=== PATIENT | female | born 1965 | race Caucasian/White ===

== ENCOUNTER 2017-09-01 14:39 | Emergency (ER) | payer MEDICAID, OTHER ==
--- NOTE | 2017-09-01 18:47 | ED Physician Chart ---
ED Chief Complaint/HPI - Patient Information Date Seen:: 09/01/17 Time Seen:: 14:50 Chief Complaint:: Right Toe Redness History of Present Illness:: onset x 3 days of right foot/toes redness and swelling; pt denies trauma, pain, injuries, itching, paresthesias, weakness, or gait changes; pt denies H/As, neck pain, C/P, SOB, Abd. Pain, A/N/V/D/C, fever, chills, or urinary s/s; pt's last tetanus shot: < 5 years; UTD; LNMP: 08/27/17; pt denies Allergies:: Allergies Allergy/AdvReac Type Severity Reaction Status Date / Time No Known Allergies Allergy Verified 09/01/17 14:48 Vitals:: Vital Signs - 8 hr 09/01/17 14:48 Temp 98.5 F HR 86 RR 15 BP 111/75 O2 Sat % 98 Historian:: Patient Review:: Nurse's Note Reviewed ED Review of Systems - Review of Systems General/Constitutional: No fever, No chills, No weight loss, No weakness, No diaphoresis, No edema, No loss of appetite Skin: No skin lesions, No rash, No bruising Head: No headache, No light-headedness Eyes: No loss of vision, No pain, No diplopia ENT: No earache, No nasal drainage, No sore throat, No tinnitus Neck: No neck pain, No swelling, No thyromegaly, No stiffness, No mass noted Cardio Vascular: No chest pain, No palpitations, No PND, No orthopnea, No edema Pulmonary: No SOB, No cough, No sputum, No wheezing GI: No nausea, No vomiting, No diarrhea, No pain, No melena, No hematochezia, No constipation, No hematemesis G/U: No dysuria, No frequency, No hematuria, No nacturia Lease Administration Analyst: No vaginal discharge, No abnormal vaginal bleed, No contraction Musculoskeletal: No bone or joint pain, No back pain, No muscle pain Endocrine: No polyuria, No polydipsia Psychiatric: No prior psych history, No depression, No anxiety, No suicidal ideation, No homicidal ideation, No auditory hallucination, No visual hallucination Hematopoietic: No bruising, No lymphadenopathy Allergic/Immuno: No urticaria, No angioedema Neurological: No syncope, No focal symptoms, No weakness, No paresthesia, No headache, No seizure, No dizziness, No confusion, No vertigo ED Past Medical History - Past Medical History Obtainable: Yes Past Medical History: No significant medical hx Family History: None Social History: Non Smoker, No Alcohol, No Drug Use, Single Surgical History: None Psychiatricy History: None Medication: Reviewed Family Medical History - Family Member Mother Hx Family Cancer: No Hx Family Coronary Artery Disease: No Hx Family Seizures: No Hx Family Dementia: No Hx Family AIDS: No Hx Family HIV: No Hx Family COPD: No Hx Family Tuberculosis: No ED Physical Exam - Physical Examination General/Constitutional: Awake, Well-developed, well-nourished, Alert, No distress, GCS 15, Non-toxic appearing, Ambulatory Head: Atraumatic Eyes: Lids, conjuctiva normal, PERRL, EOMI Skin: Nl inspection, No rash, No skin lesions, No ecchymosis, Well hydrated, No lymphadenopathy Other Skin comments:: Right Foot/ Right 2nd and 3rd Toes localized cellulitis; no PWs; no FBs; Gait: WNL; no ligament instability; good motor, tendon, and sensory functions; good NV functions; full ROMs of all joints; no joint tenderness; no septic joints ENMT: External ears, nose nl, TM canals nl, Nasal exam nl, Lips, teeth, gums nl , Oropharynx nl, Tonsils nl Neck: Nontender, Full ROM w/o pain, No JVD, No nuchal rigidity, No bruit, No mass, No stridor Other Neck comments:: supple; no meningeal signs; no cervical tenderness; no bruits Respiratory: Nl effort/Exclusion, Clear to Auscultation, No Wheeze/Rhonchi/Rales Cardio Vascular: RRR, No murmur, gallop, rubs, NL S1 S2, Carotid/Femoral/Distal pulses equal bilaterally GI: No tenderness/rebounding/guarding, No organomegaly, No hernia, Normal BS's, Nondistended, No mass/bruits, No McBurney tenderness Other GI comments:: no pulsatile masses : No CVA tenderness Extremities: No tenderness or effusion, Full ROM, normal strength in all extremities, No edema, Normal digits & nails Neuro/Psych: Alert/oriented, DTR's symmetric, Normal sensory exam, Normal motor strength, Judgement/insight normal, Mood normal, Normal gait, No focal deficits Misc: Normal back, No paraspinal tenderness ED Septic Shock - . Is Septic Shock (SBP<90, OR Lactate>4 mmol\L) present?: No - <6hrs of presentation: Vital Signs: Vital Signs - 8 hr 09/01/17 14:48 Temp 98.5 F HR 86 RR 15 BP 111/75 O2 Sat % 98 ED Reassessment (Disposition) - Reassessment Reassessment:: pt is asymptomatic upon discharge Reassessment Condition:: Improved - Diagnosis Diagnosis:: Dx: Localized Cellulitis; Right Foot/Toes Cellulitis - Aftercare/Follow up Instructions Aftercare/Follow-Up Instructions:: Counseled pt regarding lab results/diagnosis & need follow up, Refer to Discharge Instructions, Counseled pt & family regarding lab results/diagnosis & need follow up Medication Prescribed:: Rx: Keflex 500mg po qid x 10 days; Neosporin Ointment bid x 14 days; Warm Compresses to affected areas; Skin Care/Foot Care Instructions - Patient Disposition Discharge/Transfer:: Home Condition at Disposition:: Stable, Improved (RTER prn if existing s/s reoccur and/or get worse and/or any other new s/s occur; ACIs given for all above Dx; Refer to Machine Stuffer/Rotary Drill Operator Helper/Vascular Surgeon/Orthopedist/Livestock Handler [facility]; F /U with PMD in one day or prn; RTER prn if concerned) ED Discharge Plan - Patient Disposition Instructions: Cellulitis, [id number]
== END 2017-09-01 15:15 ==
LOC: ER 14:39
DX: L03.031 Cellulitis of right toe (principal)
CPT/HCPCS: Z7502

== ENCOUNTER 2017-09-15 22:26 | Emergency (ER) | payer OTHER ==
--- NOTE | 2017-09-15 22:39 | ED Physician Chart ---
ED Chief Complaint/HPI - Patient Information Date Seen:: 09/15/17 Time Seen:: 22:15 Chief Complaint:: Rash History of Present Illness:: onset x one week of intermittent right foot and right toe itching rash; pt denies trauma, H/As, neck pain, C/P, SOB, Abd. Pain, A/N/V/D/C, fever, chills, or urinary s/s; pt's last tetanus shot: < 5 years; UTD; LNMP: 09/13/17; pt denies Allergies:: Allergies Allergy/AdvReac Type Severity Reaction Status Date / Time No Known Allergies Allergy Verified 09/01/17 14:48 Historian:: Patient Review:: Nurse's Note Reviewed ED Review of Systems - Review of Systems General/Constitutional: No fever, No chills, No weight loss, No weakness, No diaphoresis, No edema, No loss of appetite Skin: Skin lesions, Rash, No bruising Head: No headache, No light-headedness Eyes: No loss of vision, No pain, No diplopia ENT: No earache, No nasal drainage, No sore throat, No tinnitus Neck: No neck pain, No swelling, No thyromegaly, No stiffness, No mass noted Cardio Vascular: No chest pain, No palpitations, No PND, No orthopnea, No edema Pulmonary: No SOB, No cough, No sputum, No wheezing GI: No nausea, No vomiting, No diarrhea, No pain, No melena, No hematochezia, No constipation, No hematemesis G/U: No dysuria, No frequency, No hematuria, No nacturia Marine Designer: No vaginal discharge, No abnormal vaginal bleed, No contraction Musculoskeletal: No bone or joint pain, No back pain, No muscle pain Endocrine: No polyuria, No polydipsia Psychiatric: No prior psych history, No depression, No anxiety, No suicidal ideation, No homicidal ideation, No auditory hallucination, No visual hallucination Hematopoietic: No bruising, No lymphadenopathy Allergic/Immuno: No urticaria, No angioedema Neurological: No syncope, No focal symptoms, No weakness, No paresthesia, No headache, No seizure, No dizziness, No confusion, No vertigo ED Past Medical History - Past Medical History Obtainable: Yes Past Medical History: No significant medical hx Family History: HTN Social History: Non Smoker, No Alcohol, No Drug Use, Single Surgical History: None Psychiatricy History: None Medication: Reviewed Family Medical History - Family Member Mother History Unknown: Yes Hx Family Cancer: No Hx Family Coronary Artery Disease: No Hx Family Seizures: No Hx Family Dementia: No Hx Family AIDS: No Hx Family HIV: No Hx Family COPD: No Hx Family Tuberculosis: No ED Physical Exam - Physical Examination General/Constitutional: Awake, Well-developed, well-nourished, Alert, No distress, GCS 15, Non-toxic appearing, Ambulatory Head: Atraumatic Eyes: Lids, conjuctiva normal, PERRL, EOMI Skin: Nl inspection, No skin lesions, No ecchymosis, Well hydrated, No lymphadenopathy Other Skin comments:: Locailzed Right Toes 2 and 3 web space macular-papular lesions cw athletes' foot ; no FBs; no cellulitis; Gait: WNL; good motor, tendon, and sensory functions; good NV functions ENMT: External ears, nose nl, Nasal exam nl, Lips, teeth, gums nl Neck: Nontender, Full ROM w/o pain, No JVD, No nuchal rigidity, No bruit, No mass, No stridor Other Neck comments:: supple; no meningeal signs; no cervical tenderness; no bruits Respiratory: Nl effort/Exclusion, Clear to Auscultation, No Wheeze/Rhonchi/Rales Cardio Vascular: RRR, No murmur, gallop, rubs, NL S1 S2, Carotid/Femoral/Distal pulses equal bilaterally GI: No tenderness/rebounding/guarding, No organomegaly, No hernia, Normal BS's, Nondistended, No mass/bruits, No McBurney tenderness Other GI comments:: no pulsatile masses : No CVA tenderness Extremities: No tenderness or effusion, Full ROM, normal strength in all extremities, No edema, Normal digits & nails Neuro/Psych: Alert/oriented, DTR's symmetric, Normal sensory exam, Normal motor strength, Judgement/insight normal, Mood normal, Normal gait, No focal deficits Misc: Normal back, No paraspinal tenderness ED Septic Shock - . Is Septic Shock (SBP<90, OR Lactate>4 mmol\L) present?: No ED Reassessment (Disposition) - Reassessment Reassessment:: pt is asymptomatic upon discharge Reassessment Condition:: Improved - Diagnosis Diagnosis:: Contact Dermatitis; Rash; Itching Rash; Athlete's Foot; Toe Mycosis; Right Foot/ Toe Itching Rash - Aftercare/Follow up Instructions Aftercare/Follow-Up Instructions:: Counseled pt regarding lab results/diagnosis & need follow up, Refer to Discharge Instructions, Counseled pt & family regarding lab results/diagnosis & need follow up Medication Prescribed:: Rx: Lotrisone Cream: apply to affected areas bid x 7 days prn itching, redness, and/or rash; Skin/Rash Care Instructions - Patient Disposition Discharge/Transfer:: Home Condition at Disposition:: Stable, Improved (RTER prn if existing s/s reoccur and/or get worse and/or any other new s/s occur; ACIs given for all above Dx; Refer to Engineering Manager Electronics/Ship'S Cook/Dispatch Officer [facility]; F/U with PMD in one day or prn ; RTER prn if concerned) ED Discharge Plan - Patient Disposition Instructions: Contact Dermatitis, [id number] Additional Instructions: FOLLOW UP WITH YOUR ELECTRICIAN TELEPHONE [facility]ICA TAKE PRESCRIBED MEDICATIONS ORDERED
== END 2017-09-15 22:32 | disposition home or self-care (01) ==
LOC: ER 22:26
DX: L25.9 Unspecified contact dermatitis, unspecified cause (principal); B35.3 Tinea pedis
CPT/HCPCS: Z7502

== ENCOUNTER 2017-10-13 08:25 | Emergency (ER) | payer OTHER ==
--- NOTE | 2017-10-13 09:04 | ED Physician Chart ---
ED Chief Complaint/HPI - Patient Information Date Seen:: 10/13/17 Time Seen:: 08:50 Chief Complaint:: cough History of Present Illness:: Patient's had a cough productive of yellow sputum for last 1 week. She has had no fever. Patient also complains of pain right foot in the web space between the small and fourth toes for the last one month. Allergies:: Allergies Allergy/AdvReac Type Severity Reaction Status Date / Time No Known Allergies Allergy Verified 09/01/17 14:48 Vitals:: Vital Signs - 8 hr 10/13/17 08:39 Temp 97.3 F HR 89 RR 16 BP 111/74 O2 Sat % 98 Historian:: Patient Review:: Nurse's Note Reviewed ED Review of Systems - Review of Systems General/Constitutional: No fever, No chills Skin: No skin lesions Head: No headache Eyes: No loss of vision ENT: No earache Neck: No neck pain Cardio Vascular: No chest pain, No palpitations Pulmonary: No SOB GI: No nausea, No vomiting, No diarrhea G/U: No dysuria Musculoskeletal: No bone or joint pain, No back pain, No muscle pain, Other ( see history) Endocrine: No polyuria, No polydipsia Psychiatric: No prior psych history, No suicidal ideation Allergic/Immuno: No urticaria Neurological: No syncope, No focal symptoms, No weakness Family Medical History - Family Member Mother History Unknown: Yes Hx Family Cancer: No Hx Family Coronary Artery Disease: No Hx Family Seizures: No Hx Family Dementia: No Hx Family AIDS: No Hx Family HIV: No Hx Family COPD: No Hx Family Tuberculosis: No ED Physical Exam - Physical Examination General/Constitutional: Awake, Well-developed, well-nourished, Alert, No distress, GCS 15, Non-toxic appearing, Ambulatory Head: Atraumatic Eyes: Lids, conjuctiva normal, PERRL, EOMI Skin: Nl inspection, No rash, No skin lesions, No ecchymosis, Well hydrated, No lymphadenopathy ENMT: External ears, nose nl, Nasal exam nl, Lips, teeth, gums nl Neck: Nontender, Full ROM w/o pain, No JVD, No nuchal rigidity, No bruit, No mass, No stridor Respiratory: Nl effort/Exclusion, Clear to Auscultation, No Wheeze/Rhonchi/Rales Cardio Vascular: RRR, No murmur, gallop, rubs, NL S1 S2 GI: No tenderness/rebounding/guarding, No organomegaly, No hernia, Normal BS's, Nondistended, No mass/bruits, No McBurney tenderness : No CVA tenderness Extremities: No tenderness or effusion, Full ROM, normal strength in all extremities, No edema, Normal digits & nails (whiteness of skin in the webspace between the right fourth and fifth toes) Neuro/Psych: Alert/oriented, DTR's symmetric, Normal sensory exam, Normal motor strength, Judgement/insight normal, Mood normal, Normal gait, No focal deficits Misc: Normal back, No paraspinal tenderness ED Assessment - Assessment General Assessment: Patient declined testing for influenza A and B ED Septic Shock - . Is Septic Shock (SBP<90, OR Lactate>4 mmol\L) present?: No - <6hrs of presentation: Vital Signs: Vital Signs - 8 hr 10/13/17 08:39 Temp 97.3 F HR 89 RR 16 BP 111/74 O2 Sat % 98 ED Reassessment (Disposition) - Diagnosis Diagnosis:: Acute viral syndrome; tinea - Aftercare/Follow up Instructions Medication Prescribed:: Prescription for Lotrisone 4 ounce tube to apply twice a day to apply between right fourth and fifth toes. - Patient Disposition Discharge/Transfer:: Home Condition at Disposition:: Stable, Unchanged
== END 2017-10-13 09:10 | disposition home or self-care (01) ==
LOC: ER 08:25
DX: B34.9 Viral infection, unspecified (principal); B35.9 Dermatophytosis, unspecified
CPT/HCPCS: Z7502

== ENCOUNTER 2018-03-05 16:26 | Emergency (ER) | payer MEDICAID, OTHER ==
--- NOTE | 2018-03-05 17:02 | ED Physician Chart ---
ED Chief Complaint/HPI - Patient Information Date Seen:: 03/05/18 Time Seen:: 16:47 Chief Complaint:: SOB History of Present Illness:: THIS IS A 53 YO FEMALE WITH A COMPLAINT OF SOB AND ANXIETY. SHE STATES THAT SHE SMOKES A PACK A DAY BUT DENIES USING ANY OTHER DRUG. SHE HAS BEEN HERE SEVERAL TIMES IN THE PAST WITH THE SAME COMPLAINT. SHE DENIES DIABETES, HYPERTENSION AND HEART DISEASE. Allergies:: Allergies Allergy/AdvReac Type Severity Reaction Status Date / Time No Known Allergies Allergy Verified 09/01/17 14:48 Vitals:: Vital Signs - 8 hr 03/05/18 16:51 Temp 98.1 F HR 85 RR 16 BP 105/69 O2 Sat % 98 Historian:: Patient Review:: Nurse's Note Reviewed, Old Chart Reviewed ED Review of Systems - Review of Systems General/Constitutional: No fever, No chills, No weight loss, No weakness, No diaphoresis, No edema, No loss of appetite Skin: No skin lesions, No rash, No bruising Head: No headache, No light-headedness Eyes: No loss of vision, No pain, No diplopia ENT: No earache, No nasal drainage, No sore throat, No tinnitus Neck: No neck pain, No swelling, No thyromegaly, No stiffness, No mass noted Cardio Vascular: No chest pain, No palpitations, No PND, No orthopnea, No edema Pulmonary: No SOB, No cough, No sputum, No wheezing GI: No nausea, No vomiting, No diarrhea, No pain, No melena, No hematochezia, No constipation, No hematemesis G/U: No dysuria, No frequency, No hematuria Musculoskeletal: No bone or joint pain, No back pain, No muscle pain, Other ( RIGHT FOOT BUNION PAIN IN THE BIG TOE JOINT) Endocrine: No polyuria, No polydipsia Psychiatric: No prior psych history, No depression, Anxiety, No suicidal ideation Hematopoietic: No bruising, No lymphadenopathy Allergic/Immuno: No urticaria, No angioedema Neurological: No syncope, No focal symptoms, No weakness, No paresthesia, No headache, No seizure, No dizziness, No confusion, No vertigo ED Past Medical History - Past Medical History Obtainable: Yes Past Medical History: Other (ANXIETY) Family History: None Social History: Smoker, No Alcohol, No Drug Use, Employed (HOUSEKEEPING) Surgical History: Cholecystectomy Family Medical History - Family Member Mother History Unknown: Yes Hx Family Cancer: No Hx Family Coronary Artery Disease: No Hx Family Seizures: No Hx Family Dementia: No Hx Family AIDS: No Hx Family HIV: No Hx Family COPD: No Hx Family Tuberculosis: No ED Physical Exam - Physical Examination General/Constitutional: Awake, Well-developed, well-nourished, Alert, No distress, GCS 15, Non-toxic appearing, Ambulatory Other Gen/Cons comments:: ANXIETY Head: Atraumatic Eyes: Lids, conjuctiva normal, PERRL, EOMI Skin: Nl inspection, No rash, No skin lesions, No ecchymosis, Well hydrated, No lymphadenopathy ENMT: External ears, nose nl, Nasal exam nl, Lips, teeth, gums nl Neck: Nontender, Full ROM w/o pain, No JVD, No nuchal rigidity, No bruit, No mass, No stridor Respiratory: Nl effort/Exclusion, Clear to Auscultation, No Wheeze/Rhonchi/Rales Cardio Vascular: RRR, No murmur, gallop, rubs, NL S1 S2 GI: No tenderness/rebounding/guarding, No organomegaly, No hernia, Normal BS's, Nondistended, No mass/bruits, No McBurney tenderness : No CVA tenderness Extremities: No tenderness or effusion, Full ROM, normal strength in all extremities, No edema, Normal digits & nails (BUNION OF THE RIGHT BIG TOE) Neuro/Psych: Alert/oriented, DTR's symmetric, Normal sensory exam, Normal motor strength, Judgement/insight normal, Mood normal, Normal gait, No focal deficits Misc: Normal back, No paraspinal tenderness ED Labs/Radiology/EKG Results - Lab Results Results: Intake & Output 03/03/18 03/04/18 03/05/18 03/06/18 06:59 06:59 06:59 06:59 Weight (lbs) 58.967 kg - Radiology Results Results: chest x-ray = nad - EKG Interpretations EKG Time:: 16:47 Rate & Rhythm: RATE=89 SINUS [place]: RIGHT ED Assessment - Assessment General Assessment: AMPHETAMINE ABUSE URINARY INFECTION ED Septic Shock - . Is Septic Shock (SBP<90, OR Lactate>4 mmol\L) present?: No - <6hrs of presentation: Vital Signs: Vital Signs - 8 hr 03/05/18 16:51 Temp 98.1 F HR 85 RR 16 BP 105/69 O2 Sat % 98 ED Reassessment (Disposition) - Reassessment Reassessment Condition:: Improved - Diagnosis Diagnosis:: AMPHETAMINE ABUSE URINARY TRACT INFECTION - Aftercare/Follow up Instructions Aftercare/Follow-Up Instructions:: Counseled pt regarding lab results/diagnosis & need follow up, Refer to Discharge Instructions, Counseled pt & family regarding lab results/diagnosis & need follow up Medication Prescribed:: Z-ALVIN, GABAPENTIN - Patient Disposition Discharge/Transfer:: Home Condition at Disposition:: Improved
[2018-03-05 17:13] LABS: % EOSINOPHILS 3.2 % (0.0-5.0); % LYMPHOCYTES 40.2 % (20.0-50.0); % MONOCYTES 8.6 % (2.0-10.0); BASOPHILE ABSOLUTE 0.1 Th/cumm (0-0.2); EOSINOPHILE ABSOLUTE 0.2 Th/cmm (0.1-0.4); HEMATOCRIT 40.2 % (41.0-60); HEMOGLOBIN 13.7 gm/dL (12-16); LYMPHOCYTE ABSOLUTE 2.9 Th/cmm (1.5-3.0); MEAN CELL VOLUME 91.1 fl (81-100); MEAN PLATELET VOLUME 8.5 fl; MONOCYTE ABSOLUTE 0.6 Th/cmm (0.3-1.0); NEUTROPHILE ABSOLUTE 3.5 Th/cmm (1.8-8.0); PLATELET COUNT 329 Th/cmm (150-400); RED BLOOD COUNT 4.41 Mil/cmm (3.80-5.10); RED CELL DISTRIBUTION WIDTH 12.7 % (11.5-20.0); WHITE BLOOD COUNT 7.3 Th/cmm (4.8-10.8)
[2018-03-05 17:21] LABS: URINE SOURCE CLEAN C
[2018-03-05 17:24] LABS: ALB/GLOB RATIO 1.6 (1.0-1.8); ALBUMIN 4.1 gm/dL (3.7-5.3); ALKALINE PHOSPHATASE 109 U/L (34-104); ANION GAP 11.1 (7.0-16.0); BILIRUBIN,TOTAL 0.4 mg/dL (0.3-1.0); BUN - UREA NITROGEN 8 mg/dL (7-25); CALCIUM SERUM 9.4 mg/dL (8.6-10.3); CARBON DIOXIDE 26.5 mEq/L (21.0-31.0); CHLORIDE 107 mEq/L (98-107); CREATININE - SERUM 0.8 mg/dL (0.6-1.2); GFR AFRICAN-AMERICAN > 60.0 ml/min (>90); GFR NON AFRICAN-AMERICAN > 60.0 ml/min; GLUCOSE 114 mg/dL (70-105); POTASSIUM SERUM 3.6 mEq/L (3.5-5.1); SGOT 35 U/L (13-39); SGPT/ALT 35 U/L (7-52); SODIUM SERUM 141 mEq/L (136-145); TOTAL PROTEIN,SERUM 6.6 gm/dL (6.0-8.3)
[2018-03-05 17:25] LABS: URINE BILIRUBIN NEGATIVE (NEGATIVE); URINE BLOOD NEGATIVE (NEGATIVE); URINE GLUCOSE (UA) NEGATIVE (NEGATIVE); URINE KETONE NEGATIVE (NEGATIVE); URINE LEUKOCYTE ESTERASE SMALL (NEGATIVE); URINE NITRATE NEGATIVE (NEGATIVE); URINE PROTEIN NEGATIVE (NEGATIVE); URINE UROBILINOGEN 0.2 E.U./dL (0.2 - 1.0)
[2018-03-05 17:52] LABS: INR 0.95 (0.5-1.4); PROTHROMBIN TIME (TEST) 9.9 SECONDS (9.5-11.5)
[2018-03-05 17:54] LABS: AMPHETAMINE URINE POSITIVE (NEGATIVE); BARBITURATES URINE NEGATIVE (NEGATIVE); BENZODIAZEPINES QUAL URINE NEGATIVE (NEGATIVE); CANNABINOID THC NEGATIVE (NEGATIVE); COCAINE METABOLITE QUAL URINE NEGATIVE (NEGATIVE); METHADONE URINE NEGATIVE (NEGATIVE); METHAMPHETAMINES QUAL URINE POSITIVE (NEGATIVE); OPIATES (MORPHINE) QUAL. URINE NEGATIVE (NEGATIVE); PHENCYCLIDINE (PCP) URINE NEGATIVE (NEGATIVE); TRICYCLICS (TCA) QUAL. URINE NEGATIVE (NEGATIVE)
[2018-03-05 18:03] LABS: URINE CLARITY HAZY (CLEAR); URINE COLOR ORANGE; URINE MICROSCOPIC INDICATED? YES
[2018-03-05 18:11] LABS: URINE BACTERIA NONE SEEN /hpf (NONE SEEN); URINE EPITHELIAL CELLS FEW /lpf (FEW); URINE RBC 0-2 /hpf (0-5)
--- NOTE | 2018-03-06 09:22 | Diagnostic Imaging Report ---
Chest x-ray single view History: Shortness of breath Comparison: None The heart size is normal. No focal pulmonary parenchymal processes. No hilar or mediastinal abnormalities. Impression: No acute abnormalities
== END 2018-03-05 18:45 | disposition home or self-care (01) ==
LOC: ER 16:26
DX: F15.10 Other stimulant abuse, uncomplicated (principal); N39.0 Urinary tract infection, site not specified; F41.9 Anxiety disorder, unspecified; R06.02 Shortness of breath; F17.200 Nicotine dependence, unspecified, uncomplicated; Z90.49 Acquired absence of other specified parts of digestive tract
CPT/HCPCS: 99285; 96372; 93005; 71045; 84484; 36415; 80307; 84443; 85025; 85610; 85730; 81001; 80053; J0696

== ENCOUNTER 2018-04-13 04:40 | Emergency (ER) | payer MEDICAID ==
--- NOTE | 2018-04-13 05:35 | ED Physician Chart ---
ED Chief Complaint/HPI - Patient Information Date Seen:: 04/13/18 Time Seen:: 05:15 Chief Complaint:: rt hand numbness History of Present Illness:: 53 yr old female with rt hand numbnessfor 3 days tries to shake it without result not cold clammy no diaphoresis no headache or dizziness Allergies:: Allergies Allergy/AdvReac Type Severity Reaction Status Date / Time No Known Allergies Allergy Verified 09/01/17 14:48 Vitals:: Vital Signs - 8 hr 04/13/18 05:06 Temp 97.7 F HR 96 RR 18 BP 116/72 O2 Sat % 100 ED Review of Systems - Review of Systems General/Constitutional: No fever, No chills Skin: No skin lesions Head: No headache Eyes: No loss of vision ENT: No earache Neck: No neck pain Cardio Vascular: No chest pain Pulmonary: No SOB GI: No nausea, No vomiting G/U: No dysuria Electrician Station Assistant: No vaginal discharge Musculoskeletal: Bone or joint pain Endocrine: No polyuria Psychiatric: No depression Hematopoietic: No bruising Allergic/Immuno: No urticaria Neurological: No syncope, Focal symptoms (numbness rt hand), Paresthesia ( numbness rt hand) Family Medical History - Family Member Mother History Unknown: Yes Hx Family Cancer: No Hx Family Coronary Artery Disease: No Hx Family Seizures: No Hx Family Dementia: No Hx Family AIDS: No Hx Family HIV: No Hx Family COPD: No Hx Family Tuberculosis: No ED Septic Shock - . Is Septic Shock (SBP<90, OR Lactate>4 mmol\L) present?: No - <6hrs of presentation: Vital Signs: Vital Signs - 8 hr 04/13/18 05:06 Temp 97.7 F HR 96 RR 18 BP 116/72 O2 Sat % 100 ED Reassessment (Disposition) - Reassessment Reassessment Condition:: Unchanged - Diagnosis Diagnosis:: numbness rt hand
[2018-04-13 05:58] LABS: HEMATOCRIT 35.3 % (41.0-60); HEMOGLOBIN 11.9 gm/dL (12-16); MEAN CELL VOLUME 91.9 fl (81-100); MEAN CORPUSCULAR HEMOGLOBIN 30.9 pg (27.0-31.0); MEAN CORPUSCULAR HGB CONC 33.7 pg (28.0-36.0); MEAN PLATELET VOLUME 9.3 fl; PLATELET COUNT 300 Th/cmm (150-400); RED BLOOD COUNT 3.84 Mil/cmm (3.80-5.10); RED CELL DISTRIBUTION WIDTH 13.1 % (11.5-20.0); WHITE BLOOD COUNT 4.8 Th/cmm (4.8-10.8)
[2018-04-13 06:14] LABS: ALB/GLOB RATIO 1.4 (1.0-1.8); ALKALINE PHOSPHATASE 83 U/L (34-104); ANION GAP 8.9 (7.0-16.0); BILIRUBIN,TOTAL 0.5 mg/dL (0.3-1.0); BUN - UREA NITROGEN 10 mg/dL (7-25); CALCIUM SERUM 8.6 mg/dL (8.6-10.3); CHLORIDE 109 mEq/L (98-107); CREATININE - SERUM 0.8 mg/dL (0.6-1.2); GFR AFRICAN-AMERICAN > 60.0 ml/min (>90); GFR NON AFRICAN-AMERICAN > 60.0 ml/min; GLUCOSE 97 mg/dL (70-105); POTASSIUM SERUM 3.9 mEq/L (3.5-5.1); SGOT 32 U/L (13-39); SGPT/ALT 21 U/L (7-52); SODIUM SERUM 138 mEq/L (136-145); TOTAL PROTEIN,SERUM 6.8 gm/dL (6.0-8.3)
[2018-04-13 07:03] LABS: URINE SOURCE CLEAN C
[2018-04-13 07:07] LABS: URINE BILIRUBIN NEGATIVE (NEGATIVE); URINE BLOOD MODERATE (NEGATIVE); URINE GLUCOSE (UA) NEGATIVE (NEGATIVE); URINE KETONE NEGATIVE (NEGATIVE); URINE LEUKOCYTE ESTERASE SMALL (NEGATIVE); URINE MICROSCOPIC INDICATED? YES; URINE NITRATE NEGATIVE (NEGATIVE); URINE PROTEIN 30 mg/dL (NEGATIVE)
[2018-04-13 07:10] LABS: URINE CLARITY HAZY (CLEAR); URINE COLOR YELLOW
[2018-04-13 07:12] LABS: URINE RBC 0-2 /hpf (0-5)
[2018-04-13 07:13] LABS: URINE BACTERIA MODERATE /hpf (NONE SEEN); URINE EPITHELIAL CELLS MANY /lpf (FEW)
--- NOTE | 2018-04-13 07:49 | Diagnostic Imaging Report ---
Head CT without intravenous contrast Indication: Right hand numbness Comparison: None Technique: Axial images were obtained from the vertex to the skull base without IV contrast. Coronal reconstructions were made. Total DLP: [id number], [id number] FINDINGS: Images of the brain obtained without contrast demonstrate no acute hemorrhage. No mass lesions identified. The ventricles and basal cisterns are patent. The thorne-white matter differentiation is preserved. There is no mass effect or midline shift. No skull fractures identified. No soft tissue swelling. The paranasal sinuses are clear. IMPRESSION: No evidence of an acute intracranial abnormality. If indicated MR follow-up may also be obtained.
[2018-04-13 13:59] LABS: EOSINOPHIL 4 % (0-5); LYMPHOCYTE 38 % (20-50); MONOCYTE 6 % (2-10); NEUTROPHILS 52 % (40-80)
== END 2018-04-13 08:35 | disposition home or self-care (01) ==
LOC: ER 04:40
DX: G56.01 Carpal tunnel syndrome, right upper limb (principal); N39.0 Urinary tract infection, site not specified; R20.0 Anesthesia of skin
CPT/HCPCS: 36415-UA; 70450-TC; 80053-TC; 81001-TC; 81025-TC; 84484-TC; 85007-TC; 85025-TC; 87086-90; 93005

== ENCOUNTER 2018-05-15 14:59 | Emergency (ER) | payer MEDICAID ==
[2018-05-15 15:47] LABS: URINE BILIRUBIN MODERATE (NEGATIVE); URINE BLOOD MODERATE (NEGATIVE); URINE GLUCOSE (UA) NEGATIVE (NEGATIVE); URINE KETONE NEGATIVE (NEGATIVE); URINE LEUKOCYTE ESTERASE TRACE (NEGATIVE); URINE MICROSCOPIC INDICATED? YES; URINE NITRATE NEGATIVE (NEGATIVE); URINE PROTEIN TRACE mg/dL (NEGATIVE); URINE SOURCE CLEAN C; URINE UROBILINOGEN 0.2 E.U./dL (0.2 - 1.0)
[2018-05-15 15:56] LABS: URINE COLOR YELLOW
[2018-05-15 15:57] LABS: URINE CLARITY SLIGHT CLOUDY (CLEAR)
[2018-05-15 16:19] LABS: URINE RBC 0-2 /hpf (0-5)
[2018-05-15 16:22] LABS: URINE BACTERIA FEW /hpf (NONE SEEN); URINE EPITHELIAL CELLS FEW /lpf (FEW); URINE WBC 25-50 /hpf (0-5)
[2018-05-15 16:43] LABS: URINE ICTOTEST POSITIVE (NEGATIVE)
--- NOTE | 2018-06-03 11:12 | ER Physician Documentation ---
DATE OF SERVICE: 05/15/2018 CHIEF COMPLAINT: Dysuria. HISTORY OF PRESENT ILLNESS: Dysuria and UTI symptoms for 4 days. The patient denies any history of vaginal discharge. Denies any fevers or chills. There is no concern for a STD. REVIEW OF SYSTEMS: Positive for dysuria. Negative for vaginal discharge. Negative for fevers and chills. Negative for nausea, vomiting, diarrhea or constipation. PAST MEDICAL HISTORY: Unremarkable. PAST SURGICAL HISTORY: Unremarkable. PHYSICAL EXAMINATION: GENERAL: The patient is a well-developed, well-nourished female in no apparent distress. LUNGS: Clear to auscultation bilaterally. COR: Regular rate and rhythm. ABDOMEN: Benign. No CVA tenderness present. NEUROLOGIC: Cranial nerves 2-12 intact. MUSCULOSKELETAL: 5/5 throughout. BACK: no CVA tenderness. EMERGENCY DEPARTMENT COURSE: The patient had a test drawn which was negative. Urinalysis revealed slightly cloudy urine, pH is 6.0, greater than 1.030 on the specific gravity, moderate blood, moderate bilirubin, trace leukocyte esterase and 25-50 wbc's with few bacteria. Urine culture was ordered. ASSESSMENT AND PLAN: Urinary tract infection. The patient was discharged with oral antibiotics. She was advised not to have any sex and nothing inserted per vagina during treatment for the UTI. She is to follow up with her primary care doctor as needed. JOB# [id number] BYRON
== END 2018-05-15 16:55 | disposition home or self-care (01) ==
LOC: ER 14:59
DX: N39.0 Urinary tract infection, site not specified (principal)
CPT/HCPCS: 81001-TC; 81025-TC; 87086-90; Z7502

== ENCOUNTER 2018-10-06 14:00 | Emergency (ER) | payer MEDICAID ==
--- NOTE | 2018-10-06 15:03 | ED Physician Chart ---
ED Chief Complaint/HPI - Patient Information Date Seen:: 10/06/18 Time Seen:: 14:50 Chief Complaint:: right knee pain History of Present Illness:: Patient had spontaneous onset 2-3 hours ago of right knee pain. Pain is primarily medial with mild pain anteriorly. No trauma. No prior knee pain or knee injuries. Allergies:: Allergies Allergy/AdvReac Type Severity Reaction Status Date / Time No Known Allergies Allergy Verified 10/06/18 14:12 Vitals:: Vital Signs - 8 hr 10/06/18 14:10 Temp 98.8 F HR 89 RR 16 BP 120/62 O2 Sat % 96 Historian:: Patient Review:: Nurse's Note Reviewed ED Review of Systems - Review of Systems General/Constitutional: No fever, No chills Skin: No skin lesions Head: No headache Eyes: No loss of vision ENT: Earache Neck: No neck pain Cardio Vascular: No chest pain, No palpitations Pulmonary: No SOB GI: No nausea, No vomiting, No diarrhea Musculoskeletal: Bone or joint pain Endocrine: No polyuria Psychiatric: No prior psych history Hematopoietic: No bruising Allergic/Immuno: No urticaria Neurological: No syncope ED Past Medical History - Past Medical History Past Medical History: No significant medical hx Family History: None Social History: Smoker, No Alcohol, Other Surgical History: Cholecystectomy (smokes one pack of cigarettes per day) Psychiatricy History: None Family Medical History - Family Member Mother History Unknown: Yes Hx Family Cancer: No Hx Family Coronary Artery Disease: No Hx Family Seizures: No Hx Family Dementia: No Hx Family AIDS: No Hx Family HIV: No Hx Family COPD: No Hx Family Tuberculosis: No ED Physical Exam - Physical Examination General/Constitutional: Awake, Well-developed, well-nourished, Alert, No distress, GCS 15, Non-toxic appearing, Ambulatory Head: Atraumatic Eyes: Lids, conjuctiva normal, PERRL, EOMI Skin: Nl inspection, No rash, No skin lesions, No ecchymosis, Well hydrated, No lymphadenopathy ENMT: External ears, nose nl, Nasal exam nl, Lips, teeth, gums nl Neck: Nontender, Full ROM w/o pain, No JVD, No nuchal rigidity, No bruit, No mass, No stridor Respiratory: Nl effort/Exclusion Other Respiratory comments:: Normal scattered anterior wheezing Cardio Vascular: RRR, No murmur, gallop, rubs, NL S1 S2 GI: No tenderness/rebounding/guarding, No organomegaly, No hernia, Normal BS's, Nondistended, No mass/bruits, No McBurney tenderness : No CVA tenderness Extremities: No tenderness or effusion, Full ROM, normal strength in all extremities, No edema, Normal digits & nails Neuro/Psych: Alert/oriented, DTR's symmetric, Normal sensory exam, Normal motor strength, Judgement/insight normal, Mood normal, Normal gait, No focal deficits Misc: Normal back, No paraspinal tenderness ED Labs/Radiology/EKG Results - Radiology Results Results: X-ray right knee normal ED Assessment - Assessment General Assessment: Patient reports no pain relief from the Toradol 30 mg intramuscularly. I put a 6 inch Levi wrap on the right knee. Since patient has medial joint tenderness she probably has a tear of her medial meniscus. If the pain continues she needs to see an orthopedist who would probably order an MRI. Patient offered crutches but she declined. ED Septic Shock - . Is Septic Shock (SBP<90, OR Lactate>4 mmol\L) present?: No - <6hrs of presentation: Vital Signs: Vital Signs - 8 hr 10/06/18 14:10 Temp 98.8 F HR 89 RR 16 BP 120/62 O2 Sat % 96 ED Reassessment (Disposition) - Reassessment Reassessment Condition:: Unchanged - Diagnosis Diagnosis:: Right knee sprain - Aftercare/Follow up Instructions Aftercare/Follow-Up Instructions:: Refer to Discharge Instructions - Patient Disposition Discharge/Transfer:: Home Condition at Disposition:: Stable, Unchanged
--- NOTE | 2018-10-07 08:16 | Diagnostic Imaging Report ---
Right knee (3 views) HISTORY: Pain Normal bone density. Slight medial joint space narrowing. Small spur formation seen about the medial tibial plateau and medial femoral condyle. There is an approximate 5 number calcified density which may be situated within the anterior medial joint compartment. (Question intra-articular "loose body". No joint effusion is evident. No fractures. IMPRESSION: 1. No acute abnormalities 2. Mild degenerative changes 2. Question small intra-articular "loose body".
== END 2018-10-06 16:00 | disposition home or self-care (01) ==
LOC: ER 14:00
DX: S83.91XA Sprain of unspecified site of right knee, initial encounter (principal); F17.210 Nicotine dependence, cigarettes, uncomplicated; Z90.49 Acquired absence of other specified parts of digestive tract; X58.XXXA Exposure to other specified factors, initial encounter; Y93.89 Activity, other specified; Y92.89 Other specified places as the place of occurrence of the external cause; Y99.8 Other external cause status
CPT/HCPCS: 99283; 96372; 73560; J1885; Z7502